=== PATIENT | male | born 1980 | race Caucasian/White ===

== ENCOUNTER 2016-12-23 09:33 | Emergency (ER) | payer OTHER ==
[~2016-12-23] VITALS: Ht 182.9 cm; Wt 149.7 kg
[~2016-12-23 09:33] MED LIST: FAMOTIDINE40 MG PO; FLOMAX0.4 MG PO; HYDROCHLOROTHIA25 MG PO; MECLOFENAMATE100 MG PO; METFORMIN HCL500 MG PO; METOPROLOL SUC100 MG PO; NORCO 5-325 TA1 EACH PO; PERCOCET 5-3251 EACH PO; PRILOSEC OTC20 MG PO; ZOFRAN ODT4 MG PO; ZOFRAN ODT8 MG PO; ZOFRAN4 MG PO; ZYRTEC10 MG PO
[2016-12-23] MEDS ORDERED: NEXIUM40 MG PO (14:06)
[2016-12-23] MEDS ORDERED: ONDANSETRON ODT8 MG PO (14:07)
== END 2016-12-23 14:22 | disposition home or self-care (01) ==
LOC: ED 09:33
DX: K29.70 Gastritis, unspecified, without bleeding (principal); K21.9 Gastro-esophageal reflux disease without esophagitis; I10 Essential (primary) hypertension; Z88.0 Allergy status to penicillin; Z88.2 Allergy status to sulfonamides; Z79.899 Other long term (current) drug therapy; Z98.52 Vasectomy status
CPT/HCPCS: 74177; 80053; 81001; 83690; 85025; 96374; 96375; 96376; 99284; J1170; J2405; J7030; Q9967

== ENCOUNTER 2017-01-21 07:05 | Day surgery (SDC) | payer OTHER ==
[~2017-01-21] VITALS: Ht 182.9 cm; Wt 149.2 kg
[~2017-01-21 07:05] MED LIST changes: +NEXIUM40 MG PO; +ONDANSETRON ODT8 MG PO
[2017-01-21] MEDS ORDERED: K-TAB ER20 MEQ (07:28)
--- NOTE | 2017-01-23 07:10 | OR ---
[facility] [address] [place], [place] [address] Signed DATE OF PROCEDURE: 01/21/17 PREOPERATIVE DIAGNOSIS: Recurrent pilonidal cyst. POSTOPERATIVE DIAGNOSIS: Recurrent pilonidal cyst. PROCEDURE: Pilonidal cystectomy. ESTIMATED BLOOD LOSS: None. INDICATIONS Loida is a 36-year-old obese diabetic gentleman who over the last 3 months has had tremendous pain, swelling, and drainage from his gluteal cleft. He has been to his primary care provider. He has been on Keflex twice and fortunately that has worked out well. He was asked to see me as a general surgeon with respect to the above. I met with Loida in the office. It is very easy to see the pits in his gluteal cleft. Fortunately, there was no infection currently. He also has very thick heavy hair. I explained to Colby the nature of the pilonidal cystectomy. We are going to leave this open to let it heal in secondarily over a couple of months. He will pack it with saline soaked gauze a couple of times a day. He understands the nature of the surgery along with its risks including but not limited to bleeding, infection, scarring, change in contour of the skin of recurrent pilonidal cyst. He has expressed understanding and would like to proceed. PROCEDURE NOTE Colby was given a saddle block by our nurse brick chimney supervisor. He was then taken into the operating room and placed in a prone oneal-knife position with appropriate padding and monitoring. He was given IV sedation per nurse brick chimney supervisor. He was then prepped and draped in the usual sterile fashion. He was given preoperative antibiotics along with SCDs. He was given his subcutaneous heparin after a saddle block. We then utilized our standard vertical elliptical incision to remove all the pits in the midline of his gluteal crease and we followed that carefully around and fortunately there were not any significant sinus tracts. We took the underlying healthy adipose tissue with this ellipse of skin. After this, the wound was infiltrated with local anesthetic. The wound was then irrigated and suctioned out until clear. We then packed the wound with 4 inch Kerlix gauze roll soaked in saline. This was covered with a dry ABD and lightly taped. Colby was able to then roll onto his hospital bed into the supine position. We then took him into recovery room in stable condition. Electronically Signed By: ANNE MCKEON MD 01/23/17 0710 PATIENT NAME: LOIDA CRUZ OPERATIVE REPORT DATE OF : 84 PHYSICIAN: ANNE MCKEON MD REPORT #: [id number] REPORT IS CONFIDENTIAL AND NOT TO BE RELEASED WITHOUT AUTHORIZATION [facility] [address] [place] [id number] Signed MD CARLOS Reyes/Modl /[id number] cc: Tomi Tidwell MD Electronically Signed By: ANNE MCKEON MD 01/23/17 0710 PATIENT NAME: LOIDA CRUZ OPERATIVE REPORT DATE OF : 84 PHYSICIAN: ANNE MCKEON MD REPORT #: [id number] REPORT IS CONFIDENTIAL AND NOT TO BE RELEASED WITHOUT AUTHORIZATION
== END 2017-01-21 10:55 | disposition home or self-care (01) ==
LOC: DS 07:05
PROVIDERS: Colon & Rectal Surgery
PROC: 0HB8XZZ Excision of Buttock Skin, External Approach (ICD-10-PCS; principal; 2017-01-21 08:15)
DX: L05.91 Pilonidal cyst without abscess (principal); I10 Essential (primary) hypertension; E78.5 Hyperlipidemia, unspecified; E11.9 Type 2 diabetes mellitus without complications; Z87.442 Personal history of urinary calculi; Z98.52 Vasectomy status; Z88.0 Allergy status to penicillin; Z88.2 Allergy status to sulfonamides; Z91.012 Allergy to eggs; Z79.899 Other long term (current) drug therapy
CPT/HCPCS: 00300; J0690; J1644; J1885; J2250; J2704; J3010; J7120

== ENCOUNTER 2017-08-30 07:42 | Emergency (ER) | payer OTHER ==
[~2017-08-30] VITALS: Ht 182.9 cm; Wt 143.3 kg
[~2017-08-30 07:42] MED LIST changes: +K-TAB ER20 MEQ
[2017-08-30] MEDS ORDERED: DICLOFENAC SODI75 MG PO (07:55)
[2017-08-30] MEDS ORDERED: PANTOPRAZOLE SO40 MG PO (07:55)
== END 2017-08-30 10:00 | disposition home or self-care (01) ==
LOC: ED 07:42
DX: R10.30 Lower abdominal pain, unspecified (principal); R11.2 Nausea with vomiting, unspecified; E11.9 Type 2 diabetes mellitus without complications; I10 Essential (primary) hypertension; Z88.0 Allergy status to penicillin; Z88.2 Allergy status to sulfonamides; Z79.899 Other long term (current) drug therapy; Z79.84 Long term (current) use of oral hypoglycemic drugs
CPT/HCPCS: 80053; 81001; 83690; 85025; 96361; 96374; 96375; 99283; J2405; J3010; J7030

== ENCOUNTER 2017-09-07 04:54 | Emergency (ER) | payer OTHER ==
[~2017-09-07] VITALS: Ht 182.9 cm; Wt 139.7 kg
[~2017-09-07 04:54] MED LIST changes: +DICLOFENAC SODI75 MG PO; +PANTOPRAZOLE SO40 MG PO
[2017-09-07] MEDS ORDERED: JANUVIA100 MG PO (05:07)
[2017-09-07] MEDS ORDERED: NORCO 5-325 TA1 EACH PO (05:31)
[2017-09-07] MEDS ORDERED: CRUTCH1 EACH (05:33)
== END 2017-09-07 06:30 | disposition home or self-care (01) ==
LOC: ED 04:54
PROC: 2W3RX1Z Immobilization of Left Lower Leg using Splint (ICD-10-PCS; principal; 2017-09-07)
DX: S76.112A Strain of left quadriceps muscle, fascia and tendon, initial encounter (principal); E11.9 Type 2 diabetes mellitus without complications; I10 Essential (primary) hypertension; Z88.0 Allergy status to penicillin; Z88.2 Allergy status to sulfonamides; Z88.1 Allergy status to other antibiotic agents; Z79.899 Other long term (current) drug therapy; W01.198A Fall on same level from slipping, tripping and stumbling with subsequent striking against other object, initial encounter
CPT/HCPCS: 29505; 73560; 99283

== ENCOUNTER 2019-09-04 18:15 | Observation (INO) | payer OTHER ==
[~2019-09-04] VITALS: Ht 182.9 cm; Wt 146.1 kg
[~2019-09-04 18:15] MED LIST changes: +CRUTCH1 EACH; +DICYCLOMINE HCL20 MG PO; +JANUVIA100 MG PO; +METFORMIN HCL500 M3 PO; -METFORMIN HCL500 MG PO; +REPAGLINIDE0.5 MG PO; +RYBELSUS14 MG PO
--- NOTE | 2019-09-04 20:36 | NUR ---
PT ADMITTED TO ROOM 118 FROM ED. A/O, ABLE TO STAND AND TRANSFER. RA, DENIED CLEARS AT THIS TIME. PLANNED SURGERY 09/05/19, BUT PAIN WAS PRETTY BAD TONIGHT. STATES HE TAKES HIS MEDICATIONS AT NIGHT AT HOME, HAS TROUBLE SLEEPING. 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 HAS BEEN HAVING TROUBLES WITH HIS STOMACH/GALLBLADDER FOR UP TO "10 WEEKS", LOST "60 POUNDS UNPLANNED" EVERYTHING HE EATS "COMES UP/OR OUT". CALL LIGHT WITHIN REACH.
--- NOTE | 2019-09-04 21:57 | NUR ---
IN ROOM TO ADMINISTER PAIN MEDS FOR 6/10 ABD PAIN. PT DENIES FURTHER NEEDS AT THIS TIME. CALL LIGHT IS CLOSE.
--- NOTE | 2019-09-04 22:45 | NUR ---
IN ROOM TO CHECK ON PT, REPORTS PAIN HAS IMPROVED. ASSESSED PT, SEE ASSESSMENT. HE DENIES NAUSEA AND DENIES FURTHER NEEDS AT THIS TIME. CALL LIGHT IS CLOSE.
--- NOTE | 2019-09-05 01:30 | NUR ---
PT IS AWAKE IN BED, HE DENIES NEEDS AT THIS TIME. CALL LIGHT IS CLOSE.
--- NOTE | 2019-09-05 02:19 | NUR ---
ADMINISTERED FENTANYL FOR PAIN, HE DENIES NAUSEA. SEE EMAR AND ASSESSMENT. PT DENIES FURTHER NEEDS AT THIS TIME. CALL LIGHT IS CLOSE.
--- NOTE | 2019-09-05 03:25 | NUR ---
PT IS RESTING WITH EYES CLOSED, RR IS EVEN AND NONLABORED. CALL LIGHT IS CLOSE & IV IS INFUSING FINE.
--- NOTE | 2019-09-05 06:20 | NUR ---
IN ROOM TO ADMINISTER FENTANYL. VS AND I&O ENTERED. PT DENIES FURTHER NEEDS AT THIS TIME. CALL LIGHT IS CLOSE.
--- NOTE | 2019-09-05 07:15 | NUR ---
RECIEVED REPORT FROM MARLEY LORD. PT APPEARS TO BE RESTING AT THIS TIME, CALL LIGHT WITHIN REACH
--- NOTE | 2019-09-05 09:10 | NUR ---
IN PTS ROOM TO GIVE MORNING MEDS. PT AWAKE AND SLIGHTL DROWSY. PT STATES THAT HIS PAIN IS "CREAPING UP THERE" PROVIDED PT WITH 50MCG OF FENTANYL PER PT REQUEST. PT HAS NO CONCERNS AT THIS TIME
--- NOTE | 2019-09-05 10:43 | NUR ---
PATIENT RSTING IN BED, EYES CLOSED. VITALS AND I&OS DONE AND CHARTED. CALL LIGHT IN REACH.
--- NOTE | 2019-09-05 11:11 | NUR ---
in pts room to hang second k-rider. pt tolerating well. pt states no pain at this time but would like to stay on top of pain meds. pt at this time is doing pre-wipe down. pt has no concerns or further questions at this time
--- NOTE | 2019-09-05 12:10 | NUR ---
In to speak with pt for CM inital assessment. He is getting on stretch to go the Surgery. Informed I will see him tomorrow.
--- NOTE | 2019-09-05 12:25 | NUR ---
PT OFF TO SURGERY AT THIS TIME
--- NOTE | 2019-09-05 13:47 | NUR ---
pt still in surgery at this time
--- NOTE | 2019-09-05 14:38 | NUR ---
09/05/19 1438 Sheets,Re 1429 PT ARRIVED TO PACU ON 6L VIA MASK WITH CLOTH MASK OVER THAT. RESP EVEN AND UNLABORED. VSS. SMALL AMOUNT OF SNORING NOTED.
--- NOTE | 2019-09-05 15:45 | NUR ---
pt back to floor. pt states that pain is 8/10. pt has 5 lap sites that appear to have no new drainage on them. pt states that he wants something else for pain. provided pt with 10 mg of percocet at this time
[2019-09-05] MEDS ORDERED: PERCOCET 10-321 EACH PO (16:21)
[2019-09-05] MEDS ORDERED: TYLENOL EXTRA500 MG PO (16:23)
[2019-09-05] MEDS ORDERED: VENTOLIN HFA18 GM (16:23)
--- NOTE | 2019-09-05 17:01 | NUR ---
this rn in pts room to do vitals. pt states that pain is getting much better. pt still appears very drowsy, able to respond to questions appropriately but rarely opens eyes
--- NOTE | 2019-09-05 19:13 | NUR ---
IN ROOM FOR REPORT, HARPREET RN IN ROOM GIVING FENTANYL AT THIS TIME. PT DENIES FURTHER NEEDS AT THIS TIME AND CALL LIGHT IS CLOSE.
--- NOTE | 2019-09-05 20:40 | NUR ---
IN ROOM TO ASSESS PT AND ADMINISTER PERCOCET FOR PAIN. PROVIDED PT JELLO. INSTRUCTED PT HOW TO USE IS AND PLACE CPOX MACHINE IN ROOM. PT DENIES FURTHER NEEDS. CALL LIGHT IS CLOSE.
--- NOTE | 2019-09-05 20:45 | NUR ---
VITALS AND I&OS DONE AND CHARTED. FRESH ICE WATER GIVEN. BEDSIDE TABLE AND CALL LIGHT IN REACH. PT NEEDS NOTHING MORE AT THIS TIME.
--- NOTE | 2019-09-05 21:05 | EKG ---
[facility] [address] [place] [place], [place] [address] Signed Normal sinus rhythm Nonspecific ST and T wave abnormality Abnormal ECG When compared with ECG of 04-SEP-2019 09:35, No significant change was found Confirmed by SADIE JEAN DO ([id number]) on 09/05/2019 9:05:07 PM Electronically Signed By: SADIE JEAN DO 09/05/19 2105 PATIENT NAME: TRACE CRUZ Electrocardiogram DATE OF : 84 PHYSICIAN: SADIE JEAN DO REPORT #: [id number] REPORT IS CONFIDENTIAL AND NOT TO BE RELEASED WITHOUT AUTHORIZATION
--- NOTE | 2019-09-05 21:45 | NUR ---
PT CALLED WANTED HELP. HAD USED URINAL, AND SPILLED ON SELF. PERSONAL SUPPLIES GIVEN TO HIM. CHOSE TO SIT ON THE EDGE OF THE BED FOR "WHILE".
--- NOTE | 2019-09-05 22:05 | NUR ---
PT CALLED, WANTED BACK IN BED. VERY SLOW, COMPLAINTS OF PAIN, HE LAID BACK DOWN, PILLOWS PLACED BEHIND HIS BACK, FRESH ICE GIVEN. REPORTED TO PT PRIMARY HIS REQUEST OF SOMETHING FOR PAIN.
--- NOTE | 2019-09-05 22:30 | NUR ---
PT IS HAVING RUQ PAIN RATING IT 8/10 HE DESCRIBES IT ACHING AND MUSCULAR. TALKED WITH PT ABOUT CONTROLLING PAIN WITH PO MEDS IF POSSIBLE AND WALKING. HE IS GRIMACING AND MOANING. PT DENIES FURTHER NEEDS AT THIS TIME. CALL LIGHT IS CLOSE.
--- NOTE | 2019-09-05 23:40 | NUR ---
PT IS RESTING WITH EYES CLOSED, RR IS EVEN AND NONLABORED ON 2LNC AND CPOX. CALL LIGHT IS CLOSE.
--- NOTE | 2019-09-06 00:44 | NUR ---
IN ROOM TO ADMINISTER PERCOCET FOR PAIN 09/11. FRESH ICE IN PLACE AND PT DENIES FURTHER NEEDS AT THIS TIME. CALL LIGHT IS CLOSE.
--- NOTE | 2019-09-06 02:23 | NUR ---
EMPTIED THE URINAL AND GOT HIM A SECOND ONE. BEDSIDE TABLE AND CALL LIGHT IN REACH.
--- NOTE | 2019-09-06 02:40 | NUR ---
PT REPORTS PAIN IS IMPROVING SOME BUT WANTED ONE LAST DOSE OF FENTANYL. ADMINISERED 50MCG FENTANYL IV AND DISCUSSED THE IMPORTANCE OF WALKING, HE AGREED THAT WHILE HIS PAIN IS WELL CONTROLLED HE WILL WALK IN THE [place]. HE DENIES FURTHER NEEDS AT THIS TIME, WILL RETURN TO WALK WITH HIM AT 0300. CALL LIGHT IS CLOSE.
--- NOTE | 2019-09-06 03:00 | NUR ---
RETURNED TO TAKE PT ON A WALK, REMOVED O2 AND HE WAS AT 92% RA. HE WALKED IN THE LUDW[place] AND MAKE A LOOP AROUND BY BACK NURSES STATION AND BACK TO ROOM. ONCE BACK IN BED HIS O2 REMAINED BETWEEN 92-94% ON RA. CPOX IS IN PLACE AND SCDS. PT DENIES FURTHER NEEDS AT THIS TIME. CALL LIGHT IS CLOSE.
--- NOTE | 2019-09-06 04:59 | NUR ---
VS AND I&O'S DONE. FRESH ICE PACK GIVEN PER REQUEST. IT PROJECT LEAD JARROD IN ROOM GIVING PRN PAIN MEDICATION. CALL LIGHT IN REACH.
--- NOTE | 2019-09-06 08:15 | NUR ---
PT IS AWAKE IN GOOD SPIRITS, EXCITED TO GO HOME TODAY, SET UP FOR SHOWER AFTER BREAKFAST, DENIES ANY NAUSEA, ORDERED BREAKFAST, DR MCKEON IN TO SEE PT, DISCHARGE ORDERS NOTED, RATES PAIN 3/10 WITH ACTIVITY, + FLATUS. VOIDING WELL.
--- NOTE | 2019-09-06 08:50 | NUR ---
Pt discussed in IDT with Dr. Trujillo. Will dc this am.
--- NOTE | 2019-09-06 08:58 | NUR ---
TOLERATED SHOWER WELL, AMBULATING IN HALLWAY NOW, DENIES NAUSEA AAFTER BREAKFAST.
[2019-09-06] MEDS ORDERED: HUMIRA CRO40 MG/0.8 SUB-Q (09:04)
[2019-09-06] MEDS ORDERED: DUREZOL5 ML OU (09:07)
[2019-09-06] MEDS ORDERED: OCUFLOX5 ML OU (09:07)
--- NOTE | 2019-09-06 09:08 | NUR ---
MED REC COMPLETE
--- NOTE | 2019-09-06 11:14 | HP ---
[facility] [address] [place], [place] [address] Signed ADMISSION DATE: 09/05/2019 CHIEF COMPLAINT: Right upper quadrant abdominal pain. HISTORY OF PRESENT ILLNESS: Colby is a 39-year-old obese gentleman, who is a borderline diabetic/insulin resistant patient. He also suffers with rheumatoid arthritis and has to take Humira. I have known him for several years with respect to mild hidradenitis and a pilonidal cyst. As always, he takes quite some time to heal. More recently over the last few months, he has been having trouble with increasing right upper quadrant abdominal pain. It is particular worse after he eats. He said he has been unable to eat and when he does eat, it seems to pass right through associated and with the pain and the cramping. He has gone from 375 pounds down to 326 pounds. His primary care provider ordered an ultrasound. That was unremarkable. He did have a fatty liver. The HIDA scan then showed a hyperkinetic gallbladder at 91% ejection fraction. Injection of the CCK had reproduced his symptoms. In fact, he was quite miserable and he missed work the next day. We had planned to remove his gallbladder this morning. However, his preoperative potassium level was low at 2.8. We had planned to correct his hypokalemia as an outpatient. However, he was to the point where he was not eating well, he was vomiting and the pain was worsening in the right upper quadrant. He came to the emergency room last evening. We admitted him overnight. He has been given IV fluids containing potassium along with IV potassium as well. In the ER, the potassium had been as low as 2.6 is back up to 2.9. He also had some T-wave abnormalities on the EKG. He has been resting overnight and generally doing fine. He said the fentanyl has really helped. In the meantime, we are waiting for Internal Medicine Service to see him this morning. We have some additional potassium ordered. He did hold the Humira last week in preparation for his surgery today. In the meantime, he also stopped his diclofenac as well. ALLERGIES: Dilaudid causes nausea and vomiting. Eggs, penicillin, sulfa, and tramadol. MEDICATIONS: Include dicyclomine 20 mg p.o. q.i.d. p.r.n. for abdominal pain and bloating, Humira 40 mg subcutaneously each week, hydrochlorothiazide 25 mg p.o. daily, metformin ER 500 mg p.o. b.i.d., metoprolol ER 100 mg p.o. daily, Zofran 8 mg p.o. t.i.d. p.r.n. for nausea and vomiting, Protonix 40 mg p.o. daily, Promethazine with codeine p.r.n., repaglinide 0.5 mg p.o. b.i.d. and Rybelsus 7 mg p.o. daily, Sudafed 60 mg p.o. b.i.d. p.r.n. for allergies and Valtrex 500 mg p.o. p.r.n. PAST MEDICAL HISTORY: Electronically Signed By: ANNE MCKEON MD 09/05/19 1101 Electronically Signed By: ANNE MCKEON MD 09/07/19 0843 PATIENT NAME: TRACE CRUZ HISTORY AND PHYSICAL DATE OF : 84 REPORT #: [id number] PHYSICIAN: ANNE MCKEON MD PCP: PIPPA YOO PA-C REPORT IS CONFIDENTIAL AND NOT TO BE RELEASED WITHOUT AUTHORIZATION [address] [address] Signed Includes obesity, hypertension, gastroesophageal reflux disease, nephrolithiasis, hyperlipidemia, hidradenitis suppurativa, rheumatoid arthritis, headache syndromes, fatigue and insulin resistance/prediabetic. PAST SURGICAL HISTORY: Includes pilonidal cyst in 2017 and then his vasectomy in 2013. SOCIAL HISTORY: He likes coffee, but he does not smoke or chew tobacco. He does not drink alcohol. He does not use IV drugs. He is and has 2 children. He is employed at a [employer]. Pippa Yoo is his physician's education administrative assistant. FAMILY HISTORY: Thyroid cancer and migraines in the family. His mother had type 2 diabetes, rheumatoid arthritis, and her migraines. His sister had thyroid disease, migraine headaches, and obesity. REVIEW OF SYSTEMS: He had 10 systems reviewed, he talked about the weight loss, his vomiting, his diarrhea along with hypertension, poor appetite and then his weight lost. PHYSICAL EXAMINATION: VITAL SIGNS: Blood pressure 124/70, heart rate is 80, respiratory rate 16, temperature is 98.0. He is 97% on room air. He is 6 feet tall and 146 kg. GENERAL: Colby is a 39-year-old gentleman lying supine in his hospital bed, watching TV. He does not appear systemically ill or toxic. As always, he is very insightful and excellent historian. LUNGS: Clear to auscultation. HEART: Regular rate and rhythm. ABDOMEN: Obese, but soft. He said he is tender in the right upper quadrant to deep palpation. LABORATORY DATA: White blood cell count is 9.2, hemoglobin 13, neutrophils 54 and platelets 263. Sodium 138, potassium was 2.6, it is up to 2.9, BUN 10, creatinine 1.25, glucose 186, total bilirubin 0.8, AST 45, ALT 56, alkaline phosphatase is 60, lipase is 25, albumin is 4.6. His urinalysis is negative. EKG showed sinus rhythm with some T-wave abnormalities. RADIOGRAPHIC STUDIES: None. ASSESSMENT/PLAN: Electronically Signed By: ANNE MCKEON MD 09/05/19 1101 Electronically Signed By: ANNE MCKEON MD 09/07/19 0843 PATIENT NAME: TRACE CRUZ HISTORY AND PHYSICAL DATE OF : 84 REPORT #: [id number] PHYSICIAN: ANNE MCKEON MD PCP: PIPPA YOO PA-C REPORT IS CONFIDENTIAL AND NOT TO BE RELEASED WITHOUT AUTHORIZATION [facility] [address] [place] [id number] Signed Colby is a 39-year-old gentleman, obese, borderline diabetic gentleman with rheumatoid arthritis and worsening right upper quadrant abdominal pain, nausea, vomiting, diarrhea and hypokalemia. He has been admitted and hydrated overnight and is in the process having the potassium corrected. Our plan is to get his gallbladder out, hopefully later today maybe tomorrow. In the meantime, we will continue his n.p.o. status and we will have our Internal Medicine Service see him as well. I reviewed all this with Colby. He has expressed understanding and agrees to above plan. Anne Mckeon MD ALB/MODL /[id number] cc: MD Pippa Abbott PA-C Andrew L Bower, MD Copies: DIANA GRANT MD, CHLOE K PA-C BOWER, ANDREW L MD ~ Electronically Signed By: ANNE MCKEON MD 09/05/19 1101 Electronically Signed By: ANNE MCKEON MD 09/07/19 0843 PATIENT NAME: TRACE CRUZ HISTORY AND PHYSICAL DATE OF : 84 REPORT #: [id number] PHYSICIAN: ANNE MCKEON MD PCP: PIPPA YOO PA-C REPORT IS CONFIDENTIAL AND NOT TO BE RELEASED WITHOUT AUTHORIZATION
--- NOTE | 2019-09-06 11:15 | OR ---
[facility] [address] [place], [place] [address] Signed DATE OF OPERATION: 09/05/2019 SURGEON: Anne Mckeon MD PREOPERATIVE DIAGNOSES: 1. Chronic cholecystitis. 2. Hyperkinetic gallbladder. 3. Fatty liver. POSTOPERATIVE DIAGNOSES: 1. Chronic cholecystitis with cholesterolosis. 2. Hyperkinetic gallbladder. 3. Fatty liver. PROCEDURE: 1. Laparoscopic cholecystectomy with intraoperative cholangiogram. 2. Right lobe needle liver biopsy. ESTIMATED BLOOD LOSS: Minimal. FINDINGS: Loida had an unremarkable intraoperative cholangiogram. He had severe cholesterolosis of the gallbladder. The gallbladder was thin and quite friable like wet tissue paper. Inside was very thick bile, almost brown with sludge. His liver was smooth on the surface with some yellowish discoloration in the background. INDICATIONS: Loida is a 39-year-old gentleman with a body mass index of 44. He is known to have insulin resistance and/or prediabetic. He has obesity, hypertension, and rheumatoid arthritis. He has to be on Humira for rheumatoid arthritis. He also is known to have some hidradenitis. I know him from previous pilonidal cystectomy. He has been having a lot of trouble with nausea and vomiting after he eats with pain in the right upper quadrant. He said within minutes of eating everything passes right through him. He is down from 375 pounds to 326 pounds. He had been to his primary care provider. The right upper quadrant ultrasound showed a fatty liver, but the gallbladder was unremarkable. The common bile duct was unremarkable. He had been sent for a HIDA scan and the liver, gallbladder, and the bile ducts were fine. However with injection of the CCK, he had a hyperkinetic gallbladder ejection fraction at 91%. Injection of the CCK reproduced his symptoms throughout the day and into the following day. He said it was Electronically Signed By: ANNE MCKEON MD 09/06/19 0604 Electronically Signed By: ANNE MCKEON MD 09/07/19 0843 PATIENT NAME: LOIDA CRUZ OPERATIVE REPORT DATE OF : 84 REPORT #: [id number] PHYSICIAN: ANNE MCKEON MD PCP: PAUL ZAMORA PA-C REPORT IS CONFIDENTIAL AND NOT TO BE RELEASED WITHOUT AUTHORIZATION [address] [address] Signed quite miserable. Consequently, he had been asked to see me with respect to the above. On his preoperative blood work, his potassium was low at 2.9. He reminded me that he was having a lot of diarrhea and nausea and vomiting. He said the pain in the right upper quadrant had been getting progressively worse. Our initial plan was to correct this as an outpatient, but he then presented to the emergency room that same evening. We went ahead and admitted him and hydrated him with D5 lactated Ringer's along with p.o. and IV potassium. In the morning, his potassium was still low. He did have some T-wave changes. We gave him additional potassium and we brought it up over 3. We did have the Internal Medicine Service see him. The T-wave abnormalities did improve with correction of his hypokalemia. However, it is recommended Loida consider a stress test as an outpatient. In the office, I had given Loida a brochure on the gallbladder. He understands the location and function of the gallbladder. We had discussed laparoscopic versus open cholecystectomy. He reminded me that his sister underwent gallbladder surgery as well. He understands there is risk including, but not limited to bleeding, infection, scarring, change in contour of the skin, damage to bowel, damage to main bile duct, incisional hernias, and inability to relieve his symptoms. He had expressed understanding and wished to proceed. PROCEDURE NOTE: I met with Loida in our day surgery area. After addressing his questions, we decided to proceed with his gallbladder surgery and a needle biopsy of the liver. He was taken to the operating room and placed in the supine position under general endotracheal tube anesthesia. He was given preoperative antibiotics along with subcutaneous Lovenox. SCDs were utilized. He was prepped and draped in the usual sterile fashion. All trocars were placed in usual positions under direct visualization of camera without difficulty. We had taken pictures throughout for photodocumentation. His gallbladder was grasped and elevated the right upper quadrant. We had introduced the fan retractor through his midline in order to hold the colon and omentum down and out of the way of the triangle of Calot. In addition, nurse scrubbed in to hold the gallbladder up and the fan retractor in place. We slowly and carefully dissected out the triangle of Calot. A clip had been placed on the cystic artery and it was divided. The intraoperative cholangiogram was inserted into the cystic duct. The intraoperative cholangiogram was then performed. It was found to be unremarkable. No filling defects and the contrast flowed readily into the duodenum. We then secured the cystic duct stump with a PDS Endoloop and 3 clips were placed across the cystic duct stump to laury its location. The gallbladder was then carefully and slowly removed from the gallbladder fossa with the help of the cautery and placed into the EndoCatch bag. We found that it was quite friable. The bile was almost brown with sludge and obviously not green or yellow as expected. We then placed the gallbladder into our EndoCatch bag. The right upper quadrant was irrigated and suctioned out until clear. We then passed our core needle into his right lobe of the liver just lateral to the gallbladder fossa. A nice core liver was taken and we gently cauterized the biopsy site for hemostasis. We Electronically Signed By: ANNE MCKEON MD 09/06/19 0604 Electronically Signed By: ANNE MCKEON MD 09/07/19 0843 PATIENT NAME: LOIDA CRUZ OPERATIVE REPORT DATE OF : 84 REPORT #: [id number] PHYSICIAN: ANNE MCKEON MD PCP: PAUL ZAMORA PA-C REPORT IS CONFIDENTIAL AND NOT TO BE RELEASED WITHOUT AUTHORIZATION [facility] [address] [place] [id number] Signed then used our laparoscopic suturing device to pass 0 Vicryl suture on either side of the subxiphoid and the mid epigastric trocar sites to close the fascia primarily. We then allowed all the gas to escape and removed the remaining trocars along with the gallbladder. The fascia of the supraumbilical trocar site was closed with interrupted [id number] and simple 0 Vicryl sutures. Local anesthetic was injected into all trocar sites. Each trocar site was irrigated and suctioned out until clear. The skin and dermis of each trocar site were closed with interrupted 3-0 subcuticular Monocryl sutures. Dry gauze and tape were applied to all incisions. Loida was awakened from his anesthesia, extubated in the OR, and taken to recovery room in stable condition. Anne Mckeon MD ALB/MODL /[id number] cc: MD Anne Rodriguez MD Chloe K Norris, PA-C Eileen Smith, MD Copies: ANNE MCKEON MD, CHLOE K PA-C SMITH, EILEEN MD ~ Electronically Signed By: ANNE MCKEON MD 09/06/19 0604 Electronically Signed By: ANNE MCKEON MD 09/07/19 0843 PATIENT NAME: LOIDA CRUZ OPERATIVE REPORT DATE OF : 84 REPORT #: [id number] PHYSICIAN: ANNE MCKEON MD PCP: PAUL ZAMORA PA-C REPORT IS CONFIDENTIAL AND NOT TO BE RELEASED WITHOUT AUTHORIZATION
--- NOTE | 2019-09-06 11:50 | NUR ---
Spoke with Loida. He is preparing for dc. Denies needs. Feeling better following surgery. Plans on dc to home with . She will assist him with needs.
--- NOTE | 2019-09-07 17:10 | PATH ---
[facility] [address], [place] [address] Signed SPECIMEN(S): A GALLBLADDER SPECIMEN(S): B LIVER NEEDLE BIOPSY SPECIMEN SOURCE: A. GALLBLADDER B. LIVER NEEDLE BIOPSY CLINICAL HISTORY: Chronic cholecystitis, fatty liver. FINAL PATHOLOGIC DIAGNOSIS: A. Gallbladder, cholecystectomy: - Chronic cholecystitis with cholesterolosis. B. Liver, needle biopsy: - Mildly active steatohepatitis with pericellular fibrosis, see Comment. - See Comment. COMMENT: The amount of liver tissue present is suboptimal, but demonstrates macrovesicular steatosis (30%, predominantly large droplet), portal lymphoplasmacytic inflammation, and lobular inflammation. No ballooned hepatocytes or Sara's hyaline is seen. The bile ducts are normal in number and show reactive changes. Portal and perisinusoidal fibrosis is seen with trichrome and reticulin stains. There is no evidence of alpha-1 antitrypsin deficiency on PAS/D stain. There is no abnormal iron accumulation with iron stain. The findings correlate to an NAFLD Activity Score (YESSENIA) of 3, and fibrosis stage of 2. If clinically indicated, a repeat liver biopsy containing more tissue may be helpful for further evaluation. Clinical correlation required. As part of [facility]' Quality Improvement Program, part B of this case was reviewed by another member of our pathology staff. NAL:AMB:cml:C2NR MICROSCOPIC EXAMINATION: Histologic sections of all submitted blocks are examined by light microscopy. Special stains (with appropriately staining controls) for iron, PAS/D, trichrome, and reticulin were performed. These findings, together with the gross examination, support the pathologic diagnosis. PATIENT NAME: TRACE CRUZ PATHOLOGY DATE OF : 84 REPORT #: [id number] PHYSICIAN: MARIELOS MUNROE PCP: PAUL ZAMORA PA-C REPORT IS CONFIDENTIAL AND NOT TO BE RELEASED WITHOUT AUTHORIZATION [facility] [address], [place] [address] Signed GROSS DESCRIPTION: Two specimens are received in two containers, labeled "NB." A. The specimen, labeled "NB, A.," and designated on the requisition "gallbladder," is received in formalin and consists of Specimen: Previously opened gallbladder. Dimensions: 7.7 x 3.5 x 2.1 cm. Serosa: Smooth and violaceous with attached adipose tissue. Cystic Duct: Unobstructed. Calculi: Not grossly identified. Mucosa: Pale green and velvety with yellow flecking. Wall thickness: Up to 0.5 cm. Lymph node: No pericystic lymph nodes are grossly identified. Additional: None. Maitre D' sections are submitted in cassette (A1). B. The specimen, labeled "NB, B.," and designated on the requisition "liver biopsy," is received in formalin and consists of galaviz tissue cores and fragments measuring 0.9 x 0.4 x 0.2 cm in aggregate. Specimen is filtered, inked with eosin, and entirely submitted in cassette (B1). AT (under the direct supervision of a pathologist) The Gross Description was prepared using a voice recognition system. The report was reviewed for accuracy; however, sound-alike word errors, addition and/or deletions may occur. If there is any question about this report, please contact Client Services. PERFORMING LABORATORY: The technical component was performed by [facility], [address] [place] [id number] (Facility Practice Specialist: Belgica Ames MD; CLIA# [id number]). Professional interpretation was performed by [facility], [place] [facility], [address] [facility] [address] [address] (CLIA# [id number]). Diagnostician: Celina Gutierrez MD Pathologist Electronically Signed 09/07/2019 Copies: ~ PATIENT NAME: TRACE CRUZ PATHOLOGY DATE OF : 84 REPORT #: [id number] PHYSICIAN: MARIELOS PATHOLOGY PCP: PAUL ZAMORA PA-C REPORT IS CONFIDENTIAL AND NOT TO BE RELEASED WITHOUT AUTHORIZATION
== END 2019-09-06 09:25 | disposition home or self-care (01) ==
LOC: ED 18:15 → MS 18:18
PROVIDERS: ADMIT Colon & Rectal Surgery
PROC: 0FB03ZX Excision of Liver, Percutaneous Approach, Diagnostic (ICD-10-PCS; 2019-09-05)
PROC: 0FT44ZZ Resection of Gallbladder, Percutaneous Endoscopic Approach (ICD-10-PCS; principal; 2019-09-05 08:45)
PROC: BF13YZZ Fluoroscopy of Gallbladder and Bile Ducts using Other Contrast (ICD-10-PCS; 2019-09-05 08:45)
DX: K81.1 Chronic cholecystitis (principal); K75.81 Nonalcoholic steatohepatitis (NASH); K74.0 Hepatic fibrosis; I10 Essential (primary) hypertension; E11.9 Type 2 diabetes mellitus without complications; E78.5 Hyperlipidemia, unspecified; K21.9 Gastro-esophageal reflux disease without esophagitis; Z88.0 Allergy status to penicillin; Z88.5 Allergy status to narcotic agent; Z88.1 Allergy status to other antibiotic agents; Z88.2 Allergy status to sulfonamides; Z79.899 Other long term (current) drug therapy; Z79.84 Long term (current) use of oral hypoglycemic drugs; Z91.012 Allergy to eggs
CPT/HCPCS: 00790; 36415; 74300; 80048; 80053; 81001; 83690; 85025; 93005; 93010; 94762; 96361; 96372; 96374; 96375; 96376; 99285-25; C9113; G0378; J0330; J1100; J1650; J1885; J2001; J2250; J2300; J2405; J2704; J3010; J3475; J3480; J3490; J7060; J7121; Q9967; U0002

== ENCOUNTER 2020-05-07 12:43 | Emergency (ER) | payer BC ==
[~2020-05-07] VITALS: Ht 182.9 cm; Wt 146.1 kg
[~2020-05-07 12:43] MED LIST changes: +DUREZOL5 ML OU; +HUMIRA CRO40 MG/0.8 SUB-Q; +OCUFLOX5 ML OU; +PERCOCET 10-321 EACH PO; +TYLENOL EXTRA500 MG PO; +VENTOLIN HFA18 GM
[2020-05-07] MEDS ORDERED: REGLAN10 MG PO (15:00)
== END 2020-05-07 15:10 | disposition home or self-care (01) ==
LOC: ED 12:43
DX: E11.43 Type 2 diabetes mellitus with diabetic autonomic (poly)neuropathy (principal); K31.84 Gastroparesis; E11.9 Type 2 diabetes mellitus without complications; I10 Essential (primary) hypertension; Z88.0 Allergy status to penicillin; Z88.5 Allergy status to narcotic agent; Z88.8 Allergy status to other drugs, medicaments and biological substances; Z88.1 Allergy status to other antibiotic agents; Z79.899 Other long term (current) drug therapy; Z79.84 Long term (current) use of oral hypoglycemic drugs
CPT/HCPCS: 80053; 83690; 85025; 96374; 96375; 99284-25; J1200; J1790; J7030